=== PATIENT | male | born 1955 ===

== ENCOUNTER 2021-04-26 09:38 | Day surgery (SDC) | payer MEDICARE ==
[2021-04-26] MEDS ORDERED: LACTATED RINGERS 1,000 ML IV ONE ×2 (10:25→11:37)
[2021-04-26] MEDS ORDERED: MIDAZOLAM 2 MG/2 ML VIAL ONE (10:51)
[2021-04-26] MEDS ORDERED: fentaNYL 250 MCG/5 ML VIAL ONE (10:51)
[2021-04-26 12:16] VITALS: BP 117/68
== END 2021-04-26 09:39 | disposition home or self-care (01) ==
LOC: SDS 09:38
PROVIDERS: ATTEND Surgery
PROC: 0DBL8ZZ Excision of Transverse Colon, Via Natural or Artificial Opening Endoscopic (ICD-10-PCS; 2021-04-26)
PROC: 0DBL8ZZ Excision of Transverse Colon, Via Natural or Artificial Opening Endoscopic (ICD-10-PCS; 2021-04-26)
PROC: 0DBN8ZZ Excision of Sigmoid Colon, Via Natural or Artificial Opening Endoscopic (ICD-10-PCS; principal; 2021-04-26 10:45)
DX: Z12.11 Encounter for screening for malignant neoplasm of colon (principal); D12.5 Benign neoplasm of sigmoid colon; D12.3 Benign neoplasm of transverse colon; K64.8 Other hemorrhoids
CPT/HCPCS: 45380; 45385; J3010; J7120

== ENCOUNTER 2022-02-07 08:18 | Outpatient (CLI) | payer MEDICARE ==
[2022-02-07 15:03] LABS: ALBUMIN 4.2 g/dL (3.2-5.5); ALBUMIN/GLOBULIN RATIO 1.4 (1.0-2.2); ALKALINE PHOSPHATASE 86 IU/L (42-121); ALT ALANINE AMINOTRANSFERASE 25 IU/L (10-60); AST ASPARTATE AMINOTRANSFERASE 27 IU/L (10-42); BILIRUBIN,TOTAL 0.9 mg/dL (0.2-1.0); BUN - BLOOD UREA NITROGEN 12 mg/dL (6-20); CALCIUM 8.9 mg/dL (8.5-10.3); CARBON DIOXIDE - CO2 28 mmol/L (21-32); CHLORIDE 103 mmol/L (101-111); CHOL/HDL RATIO 4.8 (<5.0); CHOLESTEROL 189 mg/dL; CREATININE 0.8 mg/dL (0.6-1.2); GFR - MDRD 96 (>89); GLUCOSE 95 mg/dL (70-100); HDL CHOLESTEROL 39 mg/dL; LDL CHOLESTEROL,CALCULATED 112 mg/dL; LDL/HDL RATIO 2.9 (<3.6); SODIUM 137 mmol/L (135-145); TOTAL PROTEIN 7.2 g/dL (6.7-8.2); TRIGLYCERIDES 191 mg/dL; VLDL CHOLESTEROL 38 mg/dL
== END 2022-02-07 08:19 | disposition home or self-care (01) ==
LOC: LAB.S 08:18
PROVIDERS: ATTEND Registered Nurse
DX: E78.2 Mixed hyperlipidemia (principal)
CPT/HCPCS: 36415; 80053; 80061; 83721

== ENCOUNTER 2024-02-03 13:35 | Outpatient (CLI) | payer MEDICARE ==
--- NOTE | 2024-02-03 15:52 | XRAY Report ---
PROCEDURE: Chest 2V INDICATIONS: HIS OF RESPIRATORY DISEASE TECHNIQUE: 2 views of the chest were acquired. COMPARISON: None. FINDINGS: Surgical changes and devices: None. Lungs and pleura: No pleural effusions or pneumothorax. Lungs are clear. Mediastinum: Mediastinal contours appear normal. Heart size is normal. Bones and chest wall: No suspicious bony lesions. Overlying soft tissues appear unremarkable. IMPRESSION: No acute cardiopulmonary process. Reviewed by: Tejal Petersen MD on 02/03/2024 3:51 PM PDT Approved by: Tejal Petersen MD on 02/03/2024 3:51 PM PDT Station ID: [id number]
== END 2024-02-03 13:36 | disposition home or self-care (01) ==
LOC: DI.S 13:35
PROVIDERS: ATTEND Registered Nurse
DX: Z87.09 Personal history of other diseases of the respiratory system (principal)

== ENCOUNTER 2025-06-23 10:53 | Observation (INO) ==
--- NOTE | 2025-06-23 11:35 | XRAY Report ---
PROCEDURE: XR Chest 1V INDICATIONS: Chest pain TECHNIQUE: One view of the chest was acquired. COMPARISON: Chest radiograph 02/03/2024. FINDINGS: Surgical changes and devices: None. Lungs and pleura: No pleural effusions or pneumothorax. No consolidation. Mediastinum: Mediastinal contours appear normal. Heart size is normal. Bones and chest wall: No suspicious bony lesions. Overlying soft tissues appear unremarkable. IMPRESSION: No acute cardiopulmonary process. Reviewed by: Janett Crawford MD, PhD on 06/23/2025 11:32 AM PDT Approved by: Janett Crawford MD, PhD on 06/23/2025 11:32 AM PDT Station ID: [id number]
[2025-06-23 12:05] LABS: HCT - HEMATOCRIT 46.7 % (42.0-52.0); HGB - HEMOGLOBIN 16.2 g/dL (14.0-18.0); MEAN PLATELET VOLUME 10.4 fL (7.4-11.4); NRBC ABSOLUTE COUNT (AUTO) 0.00 x10^3/uL; NUCLEATED RED BLOOD CELLS AUTO 0.0 /100WBC; PLT - PLATELET COUNT 166 10^3/uL (130-450); RED CELL DISTRIBUTION WIDTH 12.5 % (12.0-15.0)
[2025-06-23 12:08] LABS: SLIDE REVIEW? Indicated
--- NOTE | 2025-06-23 12:11 | ED Physician Documentation ---
History of Present Illness Stated complaint Stated Complaint: BILAT CP Chief complaint Chief Complaint: Cardiac History obtained from History obtained from: Patient Additonal information Additional information: This is an otherwise healthy 69-year-old gentleman who presents for the evaluation of chest/abdominal pain. He has a history of hypertension, enlarged prostate, remote sarcoidosis in remission not known to affect his lungs. He developed high epigastric pain 3 days ago that has been constant ever since and starting yesterday he developed 2 more spots of pain to either side in the lower rib cage. Nothing makes it better or worse including deep breathing, eating, position changes. He did take an oxycodone that was helpful. He declines anything for pain on initial evaluation. Meds/Allgy Home Medications Ambulatory Orders Medication Instructions Recorded Confirmed sertraline 50 mg tablet 50 mg PO DAILY 04/26/2105/10 tamsulosin 0.4 mg capsule (Flomax) 0.4 mg PO DAILY 08/0606/23/25 amlodipine 5 mg tablet (Norvasc) 5 mg PO DAILY 4 06/23/25 bupropion HCl 300 mg 24 hr tablet, 300 mg PO DAILY 06/23/25 extended release niacinamide 500 mg tablet 500 mg PO DAILY 07/16/2405/10 propranolol 20 mg tablet 20 mg PO BID 07/16/24 Allergies Allergies Allergy/AdvReac Type Severity Reaction Status Date / Time No Known Drug Allergies Allergy Verified 06/23/25 11:17 PFSH Active Problems All Active Problems (Updated 06/23/25 @ 14:30 by Sonny Tijerina MD) Abnormal computed tomography of bladder (Acute) Acute cholecystitis (Acute) Chest pain (Acute) Medical History Medical History (Updated 06/23/25 @ 14:30 by Sonny Tijerina MD) Depression Claustrophobia Raynaud disease Sarcoidosis Surgical History Surgical History Hx of colonoscopy Social History Social History Do you feel safe in your home environment?: Yes History of physical, verbal, emotional, or financial abuse?: No ETOH Use: None Substance Use: cannabis (any form) Substance Use Details: uses occansional Exam Exam Vital Signs: Vital Signs x48h Temp Pulse BP Pulse Ox 06/23/25 13:04 62 104/63 96 06/23/25 11:17 36.8 C 60 98/67 96 06/23/25 11:02 36.6 C 60 109/74 97 Constitutional normal general appearance and no apparent distress Respiratory breath sounds equal bilaterally, normal respiratory effort and clear to auscultation bilaterally Cardiovascular normal heart rate noted, regular rhythm noted and no murmur Gastrointestinal abdomen soft to palpation and nontender to palpation Neurology GCS 15 Psychiatry oriented x3 Results Vitals Vitals: Vital Signs - 24 hr 06/23/25 11:02 06/23/25 11:17 06/23/25 13:04 Temperature 36.6 C 36.8 C Temperature Source Skin Temporal Artery Scan Pulse Rate 60 60 62 Blood Pressure 109/74 98/67 104/63 O2 Saturation 97 96 96 O2 Source Room air Room air Room air Pain Intensity 8 5 Oxygen O2 Source Room air EKG (time done) 1107: EKG releavant findings:: EKG personally interpreted by author of this note. Relevant findings are: Normal sinus rhythm with rate of 59, LAD with flat inferior T waves. No ST elevation or depression. Labs Labs: Laboratory Tests 06/23/25 12:00 WBC 17.9 H RBC 5.44 Hgb 16.2 Hct 46.7 MCV 85.8 MCH 29.8 MCHC 34.7 RDW 12.5 Plt Count 166 MPV 10.4 Neut # (Auto) 15.6 H Lymph # (Auto) 0.6 L Ogle # (Auto) 1.6 H Eos # (Auto) 0.0 Baso # (Auto) 0.0 Absolute Nucleated RBC 0.00 Nucleated RBC % 0.0 Manual Slide Review Indicated RBC Morph Micro Appear 1+ ANISOCYTOSIS Sodium 133 L Potassium 3.6 Chloride 99 L Carbon Dioxide 30 Anion Gap 4.0 L BUN 15 Creatinine 0.9 Estimated GFR (MDRD) 83 L Glucose 144 H Calcium 9.2 Total Bilirubin 1.4 H AST 32 ALT 56 Alkaline Phosphatase 96 Troponin I High Sens 5.8 Total Protein 7.4 Albumin 4.0 Globulin 3.4 Albumin/Globulin Ratio 1.2 Lipase 12 Rads (name of study) Single view chest x-ray is unremarkable: Relevant Findings:: Final report received and EMP independent interpretation of test (NAD) CT A/P: Relevant Findings:: Final report received and EMP independent interpretation of test (Likely cholecystitis) Interpretation: The gallbladder is distended, with a focally thickened wall and significant pericholecystic edema. No radiopaque gallstones are visualized. Findings are concerning for acute cholecystitis. Recommend right upper quadrant ultrasound for confirmation. No biliary dilation to suggest choledocholithiasis Trabeculated bladder wall with bladder stones and bladder diverticula. Irregular bladder wall thickening is present so underlying malignancy cannot be excluded. Consider cystoscopy. CT pulmonary angiogram was negative: Relevant Findings:: Final report received and EMP independent interpretation of test (NAD) PD Medical Decision Making ED course ED course: 69-year-old gentleman presents with pain that could be either intra-abdominal or intrathoracic. Differential diagnosis would include OH, ACS, PE, dissection, gallbladder pathology, gastritis. He declines anything for pain and evaluation. His EKG is nonischemic, his chest x-ray is normal. Will obtain CT imaging of the chest and abdomen. Workup demonstrates a CBC showing a white count of 17,900, I do not have priors available for comparison. CMP notable for mild hyponatremia, mild kidney disease of unclear acuity, modest hyperglycemia, and negative troponin. Given 3 days of ongoing symptoms I think he only needs a single troponin test for evaluation for ACS. Subsequent imaging demonstrated his gallbladder as the source of the pain and our on-call surgeon was called for consultation at 3:[address] Naqvi at 3:15pm, request admit to medicine for surgery C/S. Hospitalist called at [phone] and voicemail left. Discharge Plan Discharge Patient Disposition: ED Place in Observation Condition: Fair Clinical Impression: Chest pain, Acute cholecystitis, Abnormal computed tomography of bladder Prescriptions: No Action tamsulosin [Flomax] 0.4 MG capsule 0.4 mg PO DAILY sertraline 50 MG tablet 50 mg PO DAILY bupropion HCl 300 mg tablet extended release 24 hr 300 mg PO DAILY propranolol 20 mg tablet 20 mg PO BID amlodipine [Norvasc] 5 mg tablet 5 mg PO DAILY niacinamide 500 mg tablet 500 mg PO DAILY Print Language: Georgian Stand Alone Forms: PCP List
[2025-06-23 12:19] LABS: ALT ALANINE AMINOTRANSFERASE 56.0 IU/L (10-60); AST ASPARTATE AMINOTRANSFERASE 32.0 IU/L (10-42); BUN - BLOOD UREA NITROGEN 15.0 mg/dL (6-20); CARBON DIOXIDE - CO2 30.0 mmol/L (21-32); CREATININE 0.9 mg/dL (0.6-1.3); GFR - MDRD 83.0 (>89)
[2025-06-23 12:25] LABS: TROPONIN I HIGH SENSITIVITY 5.8 ng/L (2.3-19.7)
[2025-06-23 12:26] LABS: RBC MORPHOLOGY (MULTIPLE) 1+ ANISOCYTOSIS (NORMAL)
--- NOTE | 2025-06-23 14:24 | CT Report ---
PROCEDURE: CT Abdomen/Pelvis W INDICATIONS: upper abd pain, iv only CONTRAST: 100ml omni 300 TECHNIQUE: After the administration of intravenous contrast, a CT scan of the abdomen and pelvis was performed. Images were recorded and evaluated at appropriate window settings. Reformats: coronal and sagittal. For radiation dose reduction, the following was used: automated exposure control, adjustment of mA and/or kV according to patient size. COMPARISON: None. FINDINGS: Image quality: Diagnostic. Lower chest: Separately dictated. Liver: No solid mass. Gallbladder: The gallbladder is distended, with a focally thickened wall and significant pericholecystic edema. No radiopaque gallstones are visualized. Biliary tree: No intrahepatic or extrahepatic dilation, accounting for age. Spleen: No splenomegaly. Pancreas: No pancreatic ductal dilation. Adrenals: No adrenal nodule. Kidneys and ureters: No hydronephrosis. No renal cystic lesion which requires follow up. No solid mass. Stomach, bowel and peritoneum: No gastric or small bowel dilation. No abnormal wall thickening. No pathologic free fluid. Lymph nodes: No central or retroperitoneal adenopathy. Vessels: No infrarenal aortic aneurysm. Patent portal vein. PELVIS Reproductive organs: Unremarkable. Bladder: Trabeculated bladder wall with bladder stones and diverticula. No abnormal wall thickening present. Pelvic lymph nodes: No pelvic adenopathy by size criteria. Bones: No aggressive osseous abnormality. Other: Small left direct inguinal hernia containing fat. IMPRESSION: The gallbladder is distended, with a focally thickened wall and significant pericholecystic edema. No radiopaque gallstones are visualized. Findings are concerning for acute cholecystitis. Recommend right upper quadrant ultrasound for confirmation. No biliary dilation to suggest choledocholithiasis Trabeculated bladder wall with bladder stones and bladder diverticula. Irregular bladder wall thickening is present so underlying malignancy cannot be excluded. Consider cystoscopy. Reviewed by: Edwin Laureano MD on 06/23/2025 1:21 PM MATT Approved by: Edwin Laureano MD on 06/23/2025 1:21 PM [email or web address] Station ID: [id number]
--- NOTE | 2025-06-23 14:35 | CT Report ---
PROCEDURE: CT Angio Chest INDICATIONS: low chest pain, pe protocol CONTRAST: 100ml omni 300 TECHNIQUE: After the administration of intravenous contrast images of the chest were acquired. 3-dimensional coronal oblique maximum intensity projection (MIP) reformats, axial MIP, and coronal and sagittal MPR reformats were then performed through the chest. For radiation dose reduction, the following was used: automated exposure control, adjustment of mA and/or kV according to patient size. COMPARISON: None FINDINGS: Image quality: Excellent. Large vessels: No filling defects within the opacified pulmonary arteries, accounting for motion and contrast timing. No evidence of acute aortic syndrome or aortic aneurysm. Lungs and pleura: No consolidation. No pleural effusions. No pneumothorax. No suspicious pulmonary nodules which require follow up. Mediastinum: Heart size is enlarged. No pericardial effusion. No large vessel abnormality. No mediastinal adenopathy by size criteria. Chest wall and lower neck: Thyroid is unremarkable. No axillary or supraclavicular adenopathy by size. Bones: No aggressive osseous abnormality. Upper Abdomen: Separately dictated IMPRESSION: No pulmonary embolus. No acute cardiopulmonary pathology. Reviewed by: Edwin Laureano MD on 06/23/2025 1:32 PM MATT Approved by: Edwin Laureano MD on 06/23/2025 1:32 PM AKBLOSSOM Station ID: [id number]
[2025-06-23] MEDS: HYDROmorphone 1 MG/ML CARPUJECT IVP STA (15:23)
--- NOTE | 2025-06-23 15:40 | Ultrasound Report ---
PROCEDURE: US Abdomen Limited INDICATIONS: Upper abdominal pain w abnormal gallbladder on CT TECHNIQUE: Real-time focused scanning was performed of the abdomen, with image documentation. COMPARISONS: Same day CT abdomen/pelvis 06/23/2025 FINDINGS: Liver: Liver is normal in size and homogeneous in echotexture. Gallbladder: Cholelithiasis and sludge with gallbladder wall thickening and pericholecystic fluid. Biliary ducts: Intrahepatic bile ducts are non-dilated. Extrahepatic bile duct caliber measures 5.6 mm. Normal is 6-7 mm or less in diameter, or 10 mm or less post-cholecystectomy. Pancreas: Not well visualized due to overlying bowel gas. Right kidney: Normal in size and echotexture. Right kidney measures 10.7 cm long. No hydronephrosis or nephrolithiasis. No solid masses. No complex renal cystic lesions which require follow-up. Simple right renal cyst measuring up to 1.8 cm IVC: Intrahepatic inferior vena cava is patent. Miscellaneous: No free abdominal fluid. IMPRESSION: Cholelithiasis with wall thickening and pericholecystic fluid concerning for acute cholecystitis. Agree with preliminary findings given to the ordering provider by the toe former following completion of the study. Reviewed by: Janett Crawford MD, PhD on 06/23/2025 3:37 PM PDT Approved by: Janett Crawford MD, PhD on 06/23/2025 3:37 PM PDT Station ID: [id number]
[2025-06-23] MEDS: AMPICILLIN/SULBACTAM 3 GM in SODIUM CHLORIDE 0.9% MINIBAG 100 ML IV STA (15:41)
--- NOTE | 2025-06-23 16:20 | HISTORY & PHYSICAL EXAMINATION ---
Chief Complaint Chief Complaint Chief Complaint: Abdominal pain History of Present Illness Admitted From Admitted From:: Home History Obtained From Records Reviewed: EMR History obtained from: Patient Exam Limitations: None History of Present Illness HPI Comment/Other: Patient is a 69 year old male with a history of depression, BPH who presents with abdominal pain. He states it started about three days ago, and has progressively worsened. He states it started in the epigastric region, and radiated outward. He describes it as three half inch semi buckland spots of pain. Initially, he thought that the pain was his GERD. However, it continued to progress. He tried Tums, without relief. He then tried Tylenol and naproxen without any relief. He took an oxycodone, which was leftover from his 's recent neck surgery, which eventually provided relief. He denies any nausea, vomiting, fevers, chills. He has had a right inguinal hernia surgery before, but no other abdominal surgeries. This abdominal pain is new for him, and he has not been told that he has gallstones in the past. In the ER, he was vitally stableblood pressure was 109/74, heart rate was 60, he was saturating 97% on room air, and he was afebrile. Lab work was reviewedshowed a leukocytosis of 17.9, sodium of 133, glucose of 144, and elevated bilirubin of 1.4. An abdomen/pelvis CT showed distended gallbladder with focally thickened wall and significant Segundo cholecystic edema. Abdominal ultrasound confirmed cholelithiasis with wall thickening and Segundo cholecystic fluid concerning for acute cholecystitis. A CTA was also done which showed no pulmonary embolus and no other acute cardiopulmonary pathologies. General surgery was consulted, and they will likely take the patient for a laparoscopic cholecystectomy in the a.m. He was started on IV Zosyn, and admitted for medical management. Past medical history includes depression, sarcoidosis of which she has not had a flare since he was 36, BPH, hypertension, ANGELES, hyperlipidemia. Medications include bupropion, sertraline, propranolol, tamsulosin. He has no known drug allergies. Past surgical history includes right inguinal hernia surgery repair, as well as a left hand plate and babs orthopedic repair. He denies any alcohol, tobacco, recreational drug use. He lives with his . He is very active. He ambulates independently. 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 We did discuss CODE STATUS. He is a full code and does not want any aggressive measures. They do have a POLST at home. Diet: CLD, NPO at midnight Dispo: Home on discharge Code: Full Code, discussed with and patient DVT: Lovenox Meds/Allgy Home Medications Ambulatory Orders Medication Instructions Recorded Confirmed tamsulosin 0.4 mg capsule (Flomax) 0.4 mg PO BID 04/2606/23/25 amlodipine 5 mg tablet (Norvasc) 5 mg PO DAILY 4 06/23/25 bupropion HCl 300 mg 24 hr tablet, 300 mg PO DAILY 06/23/25 extended release niacinamide 500 mg tablet 500 mg PO BID 07/16/2406/23 propranolol 20 mg tablet 20 mg PO BID 07/16/24 sertraline 100 mg tablet 50 mg PO DAILY 06/23/2505/10 Allergies Allergies Allergy/AdvReac Type Severity Reaction Status Date / Time No Known Drug Allergies Allergy Verified 06/23/25 11:17 PFSH Active Problems All Active Problems Leukocytosis (Acute) Abnormal computed tomography of bladder (Acute) Acute cholecystitis (Acute) Chest pain (Acute) Medical History Medical History Hypertension Depression Claustrophobia Raynaud disease Sarcoidosis Surgical History Surgical History History of inguinal hernia repair Hx of colonoscopy Family History Family History Other Cancer High blood pressure Social History Social History Smoking Status: Unknown if ever smoked Do you dip or chew tobacco?: No Do you vape?: No Level: Independent Do you feel safe in your home environment?: Yes History of physical, verbal, emotional, or financial abuse?: No ETOH Use: None Substance Use: cannabis (any form) Substance Use Details: uses occansional POLST Patient has POLST: No POLST on file?: No POLST CPR Status: Attempt Resuscitation (CPR) Level of Medical Intervention: Full Treatment Review of Systems Constitutional Reports: Fatigue and Weakness; Denies: Fever, Chills, Malaise or Poor appetite Eyes Denies: Pain, Irritation, Blurry vision, Vision loss, Diplopia or Eye discomfort Ears, nose, mouth, and throat Denies: Ear pain, Hearing loss, Tinnitus, Nose bleeds, Nasal discharge, Mouth lesions, Bleeding gums or Neck pain Cardiovascular Denies: Irregular heart rate, chest pain, palpitations, edema, Syncope or shortness of breath with exertion Respiratory Denies: Shortness of breath, Cough, Sputum production or Wheezing Gastrointestinal Reports: Abdominal pain and Poor appetite; Denies: Abdominal distention, Nausea, Vomiting, Heartburn, Diarrhea or Constipation Genitourinary Denies: Painful urination, Urinary frequency or Urinary urgency Musculoskeletal Denies: Back pain, Neck pain, Extremity pain, Extremity swelling or Joint pain Integumentary/Breast Denies: Rash, Itching, Dryness, Redness or Skin pain Neurological Reports: General weakness; Denies: Headache, Weakness in extremities, Numbness in extremities, Abnormal gait or Dizziness Psychiatric Reports: Depression; Denies: Anxiety, Mood swings or Panic attacks Endocrine Reports: Fatigue; Denies: Excessive urination or Excessive thirst Hematologic/Lymphatic Denies: Anemia, Easy bruising or Easy bleeding Allergic/Immunologic Denies: Hives, Tongue swelling, Facial swelling or Wheezing Prior Level of Functionality: Independent of ADLs. Exam Exam Vital Signs: Vital Signs x48h Temp Pulse Pulse Resp BP BP Pulse Ox 06/23/25 16:40 98.6 F 61 18 140/76 H 94 06/23/25 15:00 57 L 16 127/72 98 06/23/25 14:00 57 L 16 135/73 H 97 06/23/25 13:04 62 104/63 96 06/23/25 11:17 98.2 F 60 98/67 96 06/23/25 11:02 97.9 F 60 109/74 97 Constitutional normal general appearance, no apparent distress, average body habitus and no limitations HENMT normocephalic, head/scalp atraumatic and hearing grossly normal bilaterally Eyes PERRL, EOMs intact bilaterally and conjunctivae normal Neck/C-Spine visual inspection normal, trachea midline and cervical spine nontender Chest inspection of chest normal Respiratory breath sounds equal bilaterally, normal respiratory effort, clear to auscultation bilaterally, no wheezes, no rales and no retractions Cardiovascular normal heart rate noted, regular rhythm noted, no gallop, no rub and no murmur Gastrointestinal abdomen normal to inspection, abdomen soft to palpation, nontender to palpation and normoactive bowel sounds No tenderness to palpation in epigastric or RUQ region. No rebound tenderness, guarding, rigidity. Genitourinary no CVA tenderness and bladder normal to palpation Back/Pelvis spine normal to inspection Extremities normal to inspection Neurology no movement abnormality noted Psychiatry mental status grossly normal, oriented x3, thought process normal, cooperative and affect normal Skin skin color normal, no rash, no lesions and no wounds Conclusion/Plan Problem List (1) Acute cholecystitis: Plan: Patient presents with abdominal pain, leukocytosis, elevated bilirubin. CT abdomen/pelvis shows distended gallbladder with thickened wall and pericholecystic edema. This was followed up by an abdominal ultrasound which shows wall thickening and pericholecystic fluid. General Surgery consultedplan for laparoscopic cholecystectomy tomorrow AM. Continue Zosyn at this time. Continue IV fluids. Clear liquid diet at this time, followed by n.p.o. at midnight. Pain control with Tylenol for mild pain, oxycodone or Toradol for moderate pain. Will supplement with IV opioids if needed for severe pain. RCRI of 1, 1.1% major cardiac event. No chest pain, shorntess of breath. Functional METS greater than 4, patient normally very active. Patient is at acceptable risk for surgery. (2) Leukocytosis: Plan: Attributed to above. Continue to trend daily. Qualifiers: Leukocytosis type: unspecified Qualified Code(s): D72.829 - Elevated white blood cell count, unspecified (3) Hypertension: Plan: Borderline blood pressures at this time. Continue propranolol to avoid rebound tachycardia. Qualifiers: Hypertension type: unspecified Qualified Code(s): I10 - Essential (primary) hypertension (4) Sarcoidosis: Plan: Patient without an active flare since his mid 30s. Currently on room air. CTA with no active cardiopulmonary process. (5) Raynaud disease: Plan: Will continue amlodipine. Qualifiers: Raynaud?s-associated gangrene presence: without gangrene Qualified Code(s): I73.00 - Raynaud's syndrome without gangrene Lab Results Lab results reviewed: Yes 06/23/25 12:00 06/23/25 12:00 Diagnostic Imaging Results Diagnostic Imaging Results: positive Final report reviewed EKG Results EKG Interpreted Independently: Yes Core Measures Anticipated LOS I expect patient to be DC'd or transferred within 96 hours.: Yes Issues Hospital Issues and Management Plan: None anticipated. DVT/VTE - Prophylaxis VTE/DVT Device ordered at admit?: No VTE/DVT Prophylaxis med ordered at admit?: Yes Stroke - Rehab Assessment Rehab services assessment to be ordered?: No Not Ordered - Medical Reason: Not indicated AMI - Statin at Admit Aspirin Prescribed on Admit: No Not Ordered - Medical Reason: Not indicated
--- NOTE | 2025-06-23 16:42 | CONSULTATION NOTE ---
Referring Provider Name of Referring Provider:: Dr. Tijerina Consult Date: 06/23/25 Chief Complaint Chief Complaint Chief Complaint: Abdominal pain History of Present Illness Admitted From Admitted From:: ED History Obtained From Records Reviewed: Yes History obtained from: Patient Exam Limitations: None History of Present Illness HPI Comment/Other: Cody is a 69 year old man who was well until Saturday when he developed the sudden onset of midepigastric pain. It was sharp and non-radiating and while initially located below the xiphoid, eventually migrated to the right and left upper quadrants. He denies nausea, bloating or belching. He has been able to eat without difficulty all week but nocturnal discomfort Saturday and Saturday night kept him from sleeping and so he came to the ED for evaluation. He denies previous episodes of similar discomfort. The use of Peptobismol and Tums did not relieve his symptoms. He denies fever, chills or night sweats. In the ED his pain, which was 8/10 was now 1/10 with a single dose of IV Dilaudid. CT and US of the abdomen identified a distended gallbladder with intra-luminal sludge, wall thickening, and pericholecystic fluid. There was no extrahepatic bile duct dilation. His LFTs were normal except for a T. Bili of 1.4 and his WBC was elevated at 17K. Cody was admitted to the medicine service and I was asked to assist in his evaluation and management. [place] the [place] with his who he says knows his condition and will visit him this evening. 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 [facility] Active Problems All Active Problems Leukocytosis (Acute) Abnormal computed tomography of bladder (Acute) Acute cholecystitis (Acute) Chest pain (Acute) Medical History Medical History Hypertension Depression Claustrophobia Raynaud disease Sarcoidosis Surgical History Surgical History (Updated 06/23/25 @ 16:44 by Ayo Naqvi MD) History of inguinal hernia repair Hx of colonoscopy Family History Family History (Updated 06/23/25 @ 16:45 by Ayo Naqvi MD) Other Cancer High blood pressure Social History Social History (Reviewed 07/20/24 @ 09:11 by HESHAM Barrios Smoking Status: Unknown if ever smoked Do you feel safe in your home environment?: Yes History of physical, verbal, emotional, or financial abuse?: No ETOH Use: None Substance Use: cannabis (any form) Substance Use Details: uses occansional POLST Patient has POLST: No Meds/Allgy Home Medications Ambulatory Orders Medication Instructions Recorded Confirmed tamsulosin 0.4 mg capsule (Flomax) 0.4 mg PO DAILY 08/0606/23/25 amlodipine 5 mg tablet (Norvasc) 5 mg PO DAILY 4 06/23/25 bupropion HCl 300 mg 24 hr tablet, 300 mg PO DAILY 06/23/25 extended release niacinamide 500 mg tablet 500 mg PO DAILY 07/16/2405/10 propranolol 20 mg tablet 20 mg PO BID 07/16/24 sertraline 100 mg tablet mg 06/23/25 Allergies Allergies Allergy/AdvReac Type Severity Reaction Status Date / Time No Known Drug Allergies Allergy Verified 06/23/25 11:17 Results Lab Results 06/23/25 12:00 06/23/25 12:00 Other Lab Results: Lab Results x24hrs 06/23/25 Range/Units 12:00 WBC 17.9 H (4.8-10.8) x10^3/uL RBC 5.44 (4.70-6.10) 10^6/uL Hgb 16.2 (14.0-18.0) g/dL Hct 46.7 (42.0-52.0) % MCV 85.8 (80.0-94.0) fL MCH 29.8 (27.0-31.0) pg MCHC 34.7 (32.0-36.0) g/dL RDW 12.5 (12.0-15.0) % Plt Count 166 (130-450) 10^3/uL MPV 10.4 (7.4-11.4) fL Neut # (Auto) 15.6 H (1.5-6.6) 10^3/uL Lymph # (Auto) 0.6 L (1.5-3.5) 10^3/uL [place] # (Auto) 1.6 H (0.0-1.0) 10^3/uL Eos # (Auto) 0.0 (0.0-0.7) 10^3/uL Baso # (Auto) 0.0 (0.0-0.1) 10^3/uL Absolute Nucleated RBC 0.00 x10^3/uL Nucleated RBC % 0.0 /100WBC Manual Slide Review Indicated RBC Morph Micro Appear 1+ ANISOCYTOSIS (NORMAL) Sodium 133 L (135-145) mmol/L Potassium 3.6 (3.5-4.5) mmol/L Chloride 99 L (101-111) mmol/L Carbon Dioxide 30 (21-32) mmol/L Anion Gap 4.0 L (6-13) BUN 15 (6-20) mg/dL Creatinine 0.9 (0.6-1.3) mg/dL Estimated GFR (MDRD) 83 L (>89) Glucose 144 H (74-104) mg/dL Calcium 9.2 (8.5-10.3) mg/dL Total Bilirubin 1.4 H (0.2-1.0) mg/dL AST 32 (10-42) IU/L ALT 56 (10-60) IU/L Alkaline Phosphatase 96 (42-121) IU/L Troponin I High Sens 5.8 (2.3-19.7) ng/L Total Protein 7.4 (6.4-8.9) g/dL Albumin 4.0 (3.2-5.5) g/dL Globulin 3.4 (2.1-4.2) g/dL Albumin/Globulin Ratio 1.2 (1.0-2.2) Lipase 12 (11-82) U/L Diagnostic Imaging Results Diagnostic Imaging Results Comments: CT Abd/Pelvis and US RUQ reviewed Both consistent with acute cholecystitis Review of Systems Midepigastric abdominal pain, otherwise 10 point ROS noncontributory Exam Exam Vital Signs: Vital Signs x48h Temp Pulse Resp BP Pulse Ox 06/23/25 15:00 57 L 16 127/72 98 06/23/25 14:00 57 L 16 135/73 H 97 06/23/25 13:04 62 104/63 96 06/23/25 11:17 36.8 C 60 98/67 96 06/23/25 11:02 36.6 C 60 109/74 97 Constitutional normal general appearance, no apparent distress and average body habitus HENMT normocephalic, head/scalp atraumatic, hearing grossly normal bilaterally and oral mucous membranes normal Eyes PERRL, EOMs intact bilaterally, conjunctivae normal and no scleral icterus Neck/C-Spine visual inspection normal and trachea midline Lymph no lymphadenopathy noted Chest inspection of chest normal Respiratory breath sounds equal bilaterally, normal respiratory effort and clear to auscultation bilaterally Cardiovascular normal heart rate noted, regular rhythm noted and no murmur Gastrointestinal abdomen normal to inspection, abdomen soft to palpation, nontender to palpation, nontender to percussion, nondistended, normoactive bowel sounds, no hepatosplenomegaly and no masses Negative Olea's sign Extremities normal to inspection and full ROM Neurology no focal motor deficit noted and speech normal Psychiatry mental status grossly normal, oriented x3, thought process normal, cooperative and affect normal Skin skin color normal and no jaundice Conclusion/Plan Problem List (1) Acute cholecystitis: Plan 1) Clear liquids tonight; NPO after midnight 2) IV antibiotics (Unasyn) 3) IV Ketorolac 4) VTEP 5) Labs in am 6) Schedule laparoscopic cholecystectomy, possible open cholecystectomy tomorrow Consent: Cody has been counseled for the procedure, it's indications, risks, benefits and expected outcome as well as alternative therapies. We specifically discussed risks associated with anesthesia, bleeding, infection, injury to surrounding structures which may require additional surgery, and the possible need for conversion to an open procedure. We also discussed the possible need for a blood transfusion with its risks and benefits. Cody understands, agrees, and consents to the proposed operative strategy and requests that we proceed with the procedure as outlined in our discussion. Ayo Naqvi MD, [facility] General Surgery Service Lab Results 06/23/25 12:00 06/23/25 12:00
[2025-06-23] MEDS ORDERED: ONDANSETRON ODT 4 MG TABLET TL PRN (16:43)
[2025-06-23] MEDS ORDERED: SODIUM CHLORIDE FLUSH 0.9% 10 ML SYRINGE IVP PRN (16:43)
[2025-06-23] MEDS ORDERED: ONDANSETRON 4 MG/2 ML VIAL IVP PRN (16:43)
[2025-06-23] MEDS ORDERED: HYDROcod/ACETAM 5/325 MG TABLET PO PRN (16:43)
[2025-06-23] MEDS ORDERED: ACETAMINOPHEN 325 MG TABLET PO PRN (16:43)
[2025-06-23] MEDS: LACTATED RINGERS 1,000 ML IV SCH (16:59)
[2025-06-23] MEDS: SODIUM CHLORIDE FLUSH 0.9% 10 ML SYRINGE IVP SCH (16:59)
--- NOTE | 2025-06-23 17:04 | PHARMACY PROGRESS NOTE ---
Best Possible Medication History Admit Date and Time: 06/23/25 1527 Home Medications Medication Instructions Recorded Confirmed Type tamsulosin 0.4 mg capsule (Flomax) 0.4 mg PO BID 04/2606/23/25 History amlodipine 5 mg tablet (Norvasc) 5 mg PO DAILY 06/23/25 History bupropion HCl 300 mg 24 hr tablet, 300 mg PO DAILY 06/23/25 History extended release niacinamide 500 mg tablet 500 mg PO BID 07/16/2406/23 History propranolol 20 mg tablet 20 mg PO BID 07/16/24 History sertraline 100 mg tablet 50 mg PO DAILY 06/23/2505/10 History Processed by: Pharmacy (Medication reconciliation completed by Certified Professional ControllerFrance) Medications reviewed in ED?: No Medication History completed: Yes Patient Interview: Completed Secondary Source(s): Insurance records [facility] Statement: As the person ultimately responsible for medication therapy, providers are able to order a medication from an existing home medication list in [facility] via the "Reconcile Routine" prior to Confirmation of that medication by faculty support coordinator. Such practice is discouraged except when the physician, in their clinical judgment, deems that a medical need exists for a medication without regard to previous use.
[2025-06-23] MEDS ORDERED: oxyCODONE 5 MG TABLET PO PRN (17:52)
[2025-06-23] MEDS: KETOROLAC 15 MG/ML VIAL IVP PRN (18:17)
[2025-06-23] MEDS: PIPERACILLIN/TAZOBACTAM 3.375 GM in SODIUM CHLORIDE 0.9% MINIBAG 100 ML IV SCH (19:50)
[2025-06-23] MEDS: PROPRANOLOL 10 MG TABLET PO SCH (22:36)
[2025-06-24 06:13] LABS: HCT - HEMATOCRIT 39.2 % (42.0-52.0); HGB - HEMOGLOBIN 14.2 g/dL (14.0-18.0); MEAN PLATELET VOLUME 10.7 fL (7.4-11.4); PLT - PLATELET COUNT 129.0 10^3/uL (130-450); RED CELL DISTRIBUTION WIDTH 12.6 % (12.0-15.0)
[2025-06-24 06:34] LABS: BUN - BLOOD UREA NITROGEN 13.0 mg/dL (6-20); CARBON DIOXIDE - CO2 27.0 mmol/L (21-32); CREATININE 0.7 mg/dL (0.6-1.3); GFR - MDRD 111.0 (>89)
--- NOTE | 2025-06-24 07:41 | PROVIDER PROGRESS NOTE ---
Progress Note Progress Note Progress Note: General Surgery Progress Note S: Slept well; Complains of no abdominal pain O: VSS, afeb; Abdomen is soft and without tenderness or a palpable mass WBC 16.8; H&H 39.2/14.2; Na 133; K 3.3; BUN 13; Cr 0.7; Glu 121 A: Acute cholecystitis by clinical presentation and image verification. Clinically stable. P: Patient is ready for surgery later this morning. All questions answered. Ayo Naqvi MD, FACS General Surgery Service
[2025-06-24] MEDS: POTASSIUM CHLOR 10 MEQ/100 ML 10 MEQ/100 ML BAG IV SCH (08:57)
[2025-06-24] MEDS: SERTRALINE 50 MG TABLET PO SCH (09:31)
[2025-06-24] MEDS: TAMSULOSIN 0.4 MG CAPSULE PO SCH (09:32)
[2025-06-24 09:57] LABS: ALT ALANINE AMINOTRANSFERASE 51.0 IU/L (10-60); AST ASPARTATE AMINOTRANSFERASE 39.0 IU/L (10-42); BUN - BLOOD UREA NITROGEN 13.0 mg/dL (6-20); CARBON DIOXIDE - CO2 26.0 mmol/L (21-32); CREATININE 0.7 mg/dL (0.6-1.3); GFR - MDRD 111.0 (>89)
[2025-06-24] MEDS ORDERED: LIDOCAINE 1%-EPI 1:100000 20 ML MDV ONE ×2 (10:40→11:23)
[2025-06-24] MEDS ORDERED: BUPIVACAINE 0.5% PF 10 ML VIAL ONE ×2 (10:40→11:23)
--- NOTE | 2025-06-24 11:04 | Discharge Summary ---
"Discharge Summary Admit Date: 06/23/25 Discharge Date: 06/25/25 Discharging Provider: Dr. Van Xie Primary Care Provider: Lcuy Jones Discharge Facility Name: Home, self care DIAGNOSES Admission Diagnoses: Acute cholecystitis Patient presents with abdominal pain, leukocytosis, elevated bilirubin. CT abdomen/pelvis shows distended gallbladder with thickened wall and pericholecystic edema. This was followed up by an abdominal ultrasound which shows wall thickening and pericholecystic fluid. laparoscopic cholecystectomy completed today. Drain placed. Received Zosyn as well. Will need follow-up with general surgery in the outpatient within 1 to 2 weeks. Leukocytosisimproving. Hypertensioncontinue propranolol, will repeat on discharge. Sarcoidosispatient with no active flare since his mid 30s, currently on room air. Raynaud's diseaseamlodipine continued. HPI History of Present Illness: Patient is a 69 year old male with a history of depression, BPH who presents with abdominal pain. He states it started about three days ago, and has progressively worsened. He states it started in the epigastric region, and radiated outward. He describes it as three half inch semi [place] spots of pain. Initially, he thought that the pain was his GERD. However, it continued to progress. He tried Tums, without relief. He then tried Tylenol and naproxen without any relief. He took an oxycodone, which was leftover from his 's recent neck surgery, which eventually provided relief. He denies any nausea, vomiting, fevers, chills. He has had a right inguinal hernia surgery before, but no other abdominal surgeries. This abdominal pain is new for him, and he has not been told that he has gallstones in the past. In the ER, he was vitally stableblood pressure was 109/74, heart rate was 60, he was saturating 97% on room air, and he was afebrile. Lab work was reviewedshowed a leukocytosis of 17.9, sodium of 133, glucose of 144, and elevated bilirubin of 1.4. An abdomen/pelvis CT showed distended gallbladder with focally thickened wall and significant Segundo cholecystic edema. Abdominal ultrasound confirmed cholelithiasis with wall thickening and Segundo cholecystic fluid concerning for acute cholecystitis. A CTA was also done which showed no pulmonary embolus and no other acute cardiopulmonary pathologies. General surgery was consulted, and they will likely take the patient for a laparoscopic cholecystectomy in the a.m. He was started on IV Zosyn, and admitted for medical management. Past medical history includes depression, sarcoidosis of which she has not had a flare since he was 36, BPH, hypertension, ANGELES, hyperlipidemia. Medications include bupropion, sertraline, propranolol, tamsulosin. He has no known drug allergies. Past surgical history includes right inguinal hernia surgery repair, as well as a left hand plate and babs orthopedic repair. He denies any alcohol, tobacco, recreational drug use. He lives with his . He is very active. He ambulates independently. 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 We did discuss CODE STATUS. He is a full code and does not want any aggressive measures. They do have a POLST at home. Diet: CLD, NPO at midnight Dispo: Home on discharge Code: Full Code, discussed with and patient DVT: Lovenox CONSULTS | PROCEDURES Consultations: General surgery Procedures: Abdomen ultrasound, CTA, abdomen/pelvis CT, chest x-ray HOSPITAL COURSE Hospital Course: Patient is a 69-year-old male with a history of sarcoidosis without an active flare for over 40 years, Raynaud's disease, BPH who presents due to abdominal pain. He states that has been ongoing for about 3 days. Abdomen/pelvis CT was done on 06/23, followed by abdominal ultrasound which showed acute cholecystitis. He did elevated white count at 17.9. He was started on IV Zosyn, and was taken to the operating room for laparoscopic cholecystectomy the next morning. Due to gangrenous nature, drain was placed. The next morning, patient was doing well. Tolerating diet, and pain was minimal. He will be discharged home with the drain. He was advised to call to make a nursing appointment at the surgery clinic when drain output is less than 30 cc over 24 hours. He was advised to follow-up closely with his primary care provider as well. He was discharged home in stable condition with close follow-up. ALLERGIES Allergies Allergy/AdvReac Type Severity Reaction Status Date / Time No Known Drug Allergies Allergy Verified 06/23/25 11:17 MEDICATIONS Ambulatory Orders Medication Instructions Recorded Confirmed tamsulosin 0.4 mg capsule (Flomax) 0.4 mg PO BID 04/2606/23/25 amlodipine 5 mg tablet (Norvasc) 5 mg PO DAILY 4 06/23/25 bupropion HCl 300 mg 24 hr tablet, 300 mg PO DAILY 06/23/25 extended release niacinamide 500 mg tablet 500 mg PO BID 07/16/2406/23 propranolol 20 mg tablet 20 mg PO BID 07/16/24 sertraline 100 mg tablet 50 mg PO DAILY 06/23/2505/10 PHYSICAL EXAM AT DISCHARGE Vital Signs: Vital Signs x48h Temp Pulse Resp BP Pulse Ox 06/25/25 09:45 98.1 F 58 L 18 119/69 92 06/25/25 07:43 98.2 F 80 18 134/74 H 93 06/25/25 04:40 97.9 F 59 L 17 150/81 H 93 General Appearance: positive No acute distress and Alert; negative Anxious Eyes Bilateral: positive Normal inspection, PERRL and EOMI ENT: positive ENT inspection nml, Pharynx nml and No signs of dehydration Neck: positive Nml inspection, Thyroid nml and No JVD Respiratory: positive Chest non-tender, No respiratory distress and Breath sounds nml; negative Wheezes, Rales or Rhonchi Cardiovascular: positive Regular rate & rhythm, No murmur and No gallop; negative Tachycardia or Systolic murmur Abdomen: positive No organomegaly and No distention; non tender to palpation; surgical scars with minimal serosanguinous drainage noted; SOLO drain with ~20cc of serosanguinous drainage Back: positive Nml inspection; negative CVA tenderness (R) or CVA tenderness (L) Skin: positive Color nml, No rash, Warm and Dry Extremities: positive Non-tender, Full ROM, Nml appearance and No pedal edema Neurologic/Psychiatric: positive Oriented x3, Motor nml and Mood/affect nml LABS 06/25/25 05:07 06/25/25 05:07 FOLLOW UP Follow Up: Follow up PCP. Follow up general surgery. TIME SPENT Time Spent in Discharge (Minutes): 35 Discharge Plan Discharge Patient Disposition: Home, Self Care Condition: Fair Prescriptions: Continued tamsulosin [Flomax] 0.4 MG capsule 0.4 mg PO BID bupropion HCl 300 mg tablet extended release 24 hr 300 mg PO DAILY propranolol 20 mg tablet 20 mg PO BID amlodipine [Norvasc] 5 mg tablet 5 mg PO DAILY niacinamide 500 mg tablet 500 mg PO BID sertraline 100 mg tablet 50 mg PO DAILY Activity Restrictions: Activity as Tolerated Diet: Soft Health Concerns: Activity: You may walk and do light activities as soon as you feel able.Most people return to normal daily activities within a few days.Avoid heavy lifting, strenuous exercise, or vigorous sports for at least one week.If your job is physically demanding, wait about a week before returning.For desk or light work, you may return in 23 days, as tolerated. Diet: Start with clear liquids and then move to a soft diet the morning after surgery.For the next two weeks, avoid meat, bread, and carbonated drinks, as these can upset your stomach.Gradually reintroduce other foods as you feel comfortable. Pain Management: Some pain or discomfort is normal after surgery.Take acetaminophen (Tylenol) and/or NSAIDs as directed. Wound Care: Your incisions are covered with waterproof dressings.Keep them clean and dry.You may shower, but avoid soaking in a bath until the wounds are fully healed.Watch for signs of infection: redness, swelling, pus, or increasing pain at the incision sites. Follow-Up: A follow-up appointment is usually scheduled 12 weeks after surgery.Contact your healthcare team sooner if you have fever, severe pain, persistent vomiting, yellowing of your skin or eyes, or any concerns about your wounds. As for your drain, once there is less than 30cc of fluid in 24 hours, please call the surgery clinic to make a nursing appointment to have the drain removed. Recovery Expectations: Most people feel tired for a few days.Sleep quality may be affected at first but should improve quickly.Bowel habits may change temporarily.Full recovery typically takes 23 weeks. When to Seek Help: Call your doctor or go to the emergency room if you experience: Severe or worsening pain not controlled by medication Persistent vomiting or inability to keep fluids down Signs of infection at the incision sites Yellowing of your skin or eyes Shortness of breath or chest pain Other Tips: Resume driving only when you are no longer taking prescription pain medication and feel comfortable moving. If you have any questions or concerns, do not hesitate to contact your healthcare team. Print Language: Azeri Patient Instructions: Surg Dc Stand Alone Forms: PCP List Follow-up Care: Chelo Huynh MD [Provider Admit Priv/Credential, Surgery, General] - 2 Weeks Vitals documented within 30 minutes of discharge?: Yes (See DC VSs)"
--- NOTE | 2025-06-24 11:12 | ANESTHESIA PROCEDURE NOTE ---
Pre-Anesthesia VS, & Labs Diagnosis Surgical Diagnosis:: Acute Cholecystitis Procedure Procedure: Laparoscopic Cholecystectomy Vitals Vital Signs: Temp Pulse Resp BP Pulse Ox 37.2 C 60 16 137/73 H 94 06/24/25 08:11 06/24/25 08:11 06/24/25 08:11 06/24/25 08:11 06/24/25 08:11 NPO NPO: >8 hours Lab Results Current Lab Results: Laboratory Tests 06/24/25 05:50: Calcium 8.5, Magnesium 2.0, Total Bilirubin 1.2 H, AST 39, ALT 51, Alkaline Phosphatase 105, Total Protein 6.0 L, Albumin 3.3, Globulin 2.7, Albumin/Globulin Ratio 1.2 06/24/25 05:50: Glucose 122 H, Calcium 8.4 L 06/24/25 05:50: Estimated GFR (MDRD) 111, Glucose 121 H 06/24/25 05:50: Creatinine 0.7, Estimated GFR (MDRD) 111 06/24/25 05:50: BUN 13, Creatinine 0.7 06/24/25 05:50: Anion Gap 7.0, BUN 13 06/24/25 05:50: Carbon Dioxide 26, Anion Gap 6.0 06/24/25 05:50: Chloride 100 L, Carbon Dioxide 27 06/24/25 05:50: Potassium 3.4 L, Chloride 100 L 06/24/25 05:50: Sodium 133 L, Potassium 3.3 L 06/24/25 05:50: WBC 16.8 H, RBC 4.58 L, Hgb 14.2, Hct 39.2 L, MCV 85.6, MCH 31.0, MCHC 36.2 H, RDW 12.6, Plt Count 129 L, MPV 10.7, Sodium 133 L 06/23/25 12:00: WBC 17.9 H, RBC 5.44, Hgb 16.2, Hct 46.7, MCV 85.8, MCH 29.8, MCHC 34.7, RDW 12.5, Plt Count 166, MPV 10.4, Neut # (Auto) 15.6 H, Lymph # (Auto) 0.6 L, [place] # (Auto) 1.6 H, Eos # (Auto) 0.0, Baso # (Auto) 0.0, Absolute Nucleated RBC 0.00, Nucleated RBC % 0.0, Manual Slide Review Indicated, RBC Morph Micro Appear 1+ ANISOCYTOSIS, Sodium 133 L, Potassium 3.6, Chloride 99 L, Carbon Dioxide 30, Anion Gap 4.0 L, BUN 15, Creatinine 0.9, Estimated GFR (MDRD) 83 L, Glucose 144 H, Calcium 9.2, Total Bilirubin 1.4 H, AST 32, ALT 56, Alkaline Phosphatase 96, Troponin I High Sens 5.8, Total Protein 7.4, Albumin 4.0, Globulin 3.4, Albumin/Globulin Ratio 1.2, Lipase 12 Lab results reviewed: Yes 06/24/25 05:50 06/24/25 05:50 Meds/Allgy Home Medications Ambulatory Orders Medication Instructions Recorded Confirmed tamsulosin 0.4 mg capsule (Flomax) 0.4 mg PO BID 04/2606/23/25 amlodipine 5 mg tablet (Norvasc) 5 mg PO DAILY 4 06/23/25 bupropion HCl 300 mg 24 hr tablet, 300 mg PO DAILY 06/23/25 extended release niacinamide 500 mg tablet 500 mg PO BID 07/16/2406/23 propranolol 20 mg tablet 20 mg PO BID 07/16/24 sertraline 100 mg tablet 50 mg PO DAILY 06/23/2505/10 Allergies Allergies Allergy/AdvReac Type Severity Reaction Status Date / Time No Known Drug Allergies Allergy Verified 06/23/25 11:17 PFSH Active Problems All Active Problems Leukocytosis (Acute) Abnormal computed tomography of bladder (Acute) Acute cholecystitis (Acute) Chest pain (Acute) Medical History Medical History Hypertension Depression Claustrophobia Raynaud disease Sarcoidosis Surgical History Surgical History History of inguinal hernia repair Hx of colonoscopy Family History Family History Other Cancer High blood pressure Social History Social History (Reviewed 06/24/25 @ 11:10 by HESHAM Funez Smoking Status: Unknown if ever smoked Do you dip or chew tobacco?: No Do you vape?: No Level: Independent Do you feel safe in your home environment?: Yes History of physical, verbal, emotional, or financial abuse?: No ETOH Use: None Substance Use: cannabis (any form) Substance Use Details: uses occansional POLST Patient has POLST: No POLST on file?: No POLST CPR Status: Attempt Resuscitation (CPR) Level of Medical Intervention: Full Treatment Anesthesia Exam (Expanded) Exam General: Alert, Oriented x3 and Cooperative Dental: WNL Mouth Openin Fingerbreadth Neck Mobility: Normal Mallampati classification: II Thyromental Distance: 4-6 cm Respiratory: Lungs clear and Normal breath sounds Cardiovascular: Regular rate Neurological: Normal speech Mental/Cognitive Status: Alert/Oriented X3 and Normal for patient Cognitive Status: Within normal limits Exam Exam Vital Signs: Vital Signs x48h Temp Pulse Resp BP Pulse Ox 06/24/25 08:11 37.2 C 60 16 137/73 H 94 06/24/25 04:10 36.8 C 60 16 115/69 93 Constitutional normal general appearance HENMT dentition normal Neck/C-Spine cervical full ROM noted Respiratory breath sounds equal bilaterally and normal respiratory effort Cardiovascular normal heart rate noted and regular rhythm noted Plan Problem List (1) Acute cholecystitis: Plan: Patient presents with abdominal pain, leukocytosis, elevated bilirubin. CT abdomen/pelvis shows distended gallbladder with thickened wall and pericholecystic edema. This was followed up by an abdominal ultrasound which shows wall thickening and pericholecystic fluid. General Surgery consultedplan for laparoscopic cholecystectomy tomorrow AM. Continue Zosyn at this time. Continue IV fluids. Clear liquid diet at this time, followed by n.p.o. at midnight. Pain control with Tylenol for mild pain, oxycodone or Toradol for moderate pain. Will supplement with IV opioids if needed for severe pain. RCRI of 1, 1.1% major cardiac event. No chest pain, shorntess of breath. Functional METS greater than 4, patient normally very active. Patient is at acceptable risk for surgery. (2) Leukocytosis: Plan: Attributed to above. Continue to trend daily. Qualifiers: Leukocytosis type: unspecified Qualified Code(s): D72.829 - Elevated white blood cell count, unspecified (3) Hypertension: Plan: Borderline blood pressures at this time. Continue propranolol to avoid rebound tachycardia. Qualifiers: Hypertension type: unspecified Qualified Code(s): I10 - Essential (primary) hypertension (4) Sarcoidosis: Plan: Patient without an active flare since his mid 30s. Currently on room air. CTA with no active cardiopulmonary process. (5) Raynaud disease: Plan: Will continue amlodipine. Qualifiers: Raynaud?s-associated gangrene presence: without gangrene Qualified Code(s): I73.00 - Raynaud's syndrome without gangrene Plan Anesthesia Type: General Consent for Procedure(s) Verified and Reviewed: Yes Code Status: Attempt Resuscitation ASA Classification ASA classification: 2-Mild systemic disease Is this case an emergency?: Yes
[2025-06-24] MEDS ORDERED: LIDOCAINE-PF 2% 10 ML AMP SUBQ ONE (11:23)
[2025-06-24] MEDS ORDERED: PROPOFOL 200 MG/20 ML VIAL IVP ONE (11:23)
[2025-06-24] MEDS ORDERED: ROCURONIUM 50 MG/5 ML VIAL ONE ×2 (11:24→12:52)
[2025-06-24] MEDS ORDERED: MIDAZOLAM 2 MG/2 ML VIAL ONE (11:48)
[2025-06-24] MEDS ORDERED: fentaNYL 100 MCG/2 ML VIAL ONE ×2 (11:48→13:39)
[2025-06-24] MEDS ORDERED: PHENYLEPHRINE HCL 0.5 MG/5 ML AMPULE ONE (14:16)
[2025-06-24] MEDS ORDERED: ACETAMINOPHEN 1,000 MG/100 ML 1,000 MG/100 ML BAG IV ONE (14:26)
[2025-06-24] MEDS ORDERED: DEXAMETHASONE 10 MG/ML VIAL ONE (14:27)
[2025-06-24] MEDS ORDERED: ONDANSETRON 4 MG/2 ML VIAL ONE (14:27)
[2025-06-24] MEDS ORDERED: SUGAMMADEX 200 MG/2 ML VIAL IVP ONE (14:33)
--- NOTE | 2025-06-24 14:56 | OPERATIVE REPORT ---
Operative Report General Admit Date: 06/24/25 Procedure Data: Operation Date: 06/24/25 10:30 Proposed Procedures p Laparoscopic Cholecystectomy POSSIBLE OPEN(Not Applicable) - Ayo Naqvi MD Actual Procedures p Laparoscopic Cholecystectomy (Not Applicable) - Ayo Naqvi MD Pre-Op Diagnosis: GANGRENOUS CHOLECYSTITIS Anesthesia Type General Case Staff Anesthesia Provider: Emeka Cyr Times Into Recovery: 06/24/25 14:43 Procedure Start: 06/24/25 12:15 Procedure End: 06/24/25 14:35 Time out: 06/24/25 12:14 Other Other Information/Narrative: PROCEDURE DATE: 06/24/2025 PREOPERATIVE DIAGNOSIS: Cody is a 69 year old male who has clinical, image, and laboratory findings consistent with acute cholecystitis. He is being taken to the operating room for laparoscopic cholecystectomy, possible open cholecystectomy. POSTOPERATIVE DIAGNOSIS: Gangrenous cholecystitis NAME OF PROCEDURE: Laparoscopic cholecystectomy; placement of subhepatic drain SURGEON: Ayo Naqvi MD, FACS [employer]IN[employer]CE SURGEON: None ANESTHESIA: General endotracheal. ESTIMATED BLOOD LOSS: 75-100 mL. DRAINS: None SPECIMEN: Gallbladder COMPLICATIONS None FINDINGS: The gallbladder was encased in a dense wrap of inflamed and fibrotic omentum. The gallbladder wall was inflamed and demonstrated a thick, inflamed visceral peritoneal rind. The posterior wall of the gallbladder was necrotic and the mid-portion of the gallbladder was intrahepatic. The gallbladder was filled with small gallstones. DESCRIPTION OF OPERATION FOLLOWS: After consent for the procedure was obtained, the patient was brought to the operating room where in the supine position, general endotracheal anesthesia was administered. A surgical time-out was performed indicating the patient and the procedure to be performed. The abdomen was prepped with alcohol-free chloroprep and draped in a sterile fashion. Pneumoperitoneum was achieved through a subumbilical incision using a Alpesh cannula and an open technique. Under direct vision, a 10 mm non-cutting laparoscopic port was placed in the sub-xiphoid region and two 5 mm noncutting ports were placed in the right upper quadrant; one in the mid-clavicular line and one in the anterior axillary line. Each of the port sites were infiltrated with 1% Lidocaine with epinephrine in a 50/50 mix with 1/4% Marcaine mixture prior making the incisions. The patient was placed in the steep reverse Trendelenburg position and rolled to the left. Inspection of the right upper quadrant revealed the above noted findings. In order to identify the gallbladder I needed to dissect the thickened, inflamed omentum away from the liver. This was difficult because the tissue was fibrotic and required the use of a ligasure to carefully transect the tissue to avoid tearing of the liver. Once the fundus was identified, the gallbladder was decompressed such that a grasper could be placed for retraction over the liver. This retraction could only be performed after the fibrotic omentum was dissected off of the lateral and medial aspect of the gallbladder wall. Even then, the anatomy was distorted in that it was difficult to identify the lateral and medial edges of the gallbladder because of the degree of inflammation. This was all complicated by frequent fogging of the endoscope and only after using a scope warmed in a endoscope warmer were we able to achieve clear enough visdeo and exposure to continue the laparoscopic approach. I was able to carefully separate the inflamed visceral peritoneum from the anterior aspect of the gallbladder wall with traction and was then able to see the actual gallbladder wall near the neck. The neck was grasped and retracted laterally. Further dissection revealed the cystic duct and the cystic artery with clear exposure of the liver behind both structures. Both cystic duct (3 clips) and cystic artery (3 clips) were clipped proximally and distally and transected. The gallbladder was then removed from the liver bed using electrocautery and brought out through the subxiphoid port using an endo-catch device. This was time consuming and tedious as the hook cautery was used slowly to avoid injury to the inflamed liver bed which was friable and bled easily. The posterior wall of the gallbladder was almost completely gangrenous and tore in several locations during retraction and bile with gallstones spilled into the peritoneal cavity. Reinspection of the right upper quadrant revealed one area of significant oozing from the liver bed which was controlled with electrocautery. Further irrigation revealed no evidence of active bleeding but I decided to apply FloSeal to the liver bed to insure post-op hemostasis. The RUQ was then irrigated with several liters of warm, sterile saline and all visible bile and stones were aspirated using the 10 mm aspirator. Reinspection of the RUQ revealed no evidence of bleeding or bile leakage from the previous dissection site. A 19 F Pal drain was placed into the sub-hepatic space, brought out through the lateral port site, and secured to the skin with a 3-0 silk suture. A search was made for sponges, packs, instruments, and needles. None were found. The sponge, pack, instrument, and needle counts were relayed to me as being correct. The sub-xiphoid port site was closed with a 0 Vicryl under direct vision using an endo-close device. The pneumoperitoneum then was released. There was no evidence of bleeding from the laparoscopic port sleeve sites upon release of the pneumoperitoneum. The subumbilical incision was closed with 0 Vicryl for the linea alba. The skin of each of the port sites was closed with interrupted 4-0 Mocryl in a subcuticular fashion with Dermabond adhesive to reinforce the epidermis. Dressings were placed. The patient tolerated the procedure well and was brought to the recovery room with stable vital signs.
[2025-06-24] MEDS ORDERED: HYDROmorphone 0.5 MG/0.5 ML SYRINGE IVP PRN (14:58)
[2025-06-24] MEDS ORDERED: ATROPINE ABBOJECT 1 MG/10 ML SYRINGE IVP PRN (14:58)
[2025-06-24] MEDS ORDERED: NALOXONE 0.4 MG/ML VIAL IVP PRN (14:58)
[2025-06-24] MEDS ORDERED: ONDANSETRON 4 MG/2 ML VIAL IVP PRN (14:58)
[2025-06-24] MEDS ORDERED: MORPHINE 2 MG/ML CARPUJECT IVP PRN (14:58)
[2025-06-24] MEDS ORDERED: fentaNYL 100 MCG/2 ML VIAL IVP PRN (14:58)
[2025-06-24] MEDS ORDERED: METOCLOPRAMIDE 10 MG/2 ML VIAL IVP PRN (14:58)
[2025-06-24] MEDS ORDERED: ePHEDrine 50 MG/ML VIAL IVP PRN (14:58)
--- NOTE | 2025-06-24 15:15 | PROVIDER PROGRESS NOTE ---
Subjective Subjective Subjective: Patient was seen in the morning prior to surgery. He had no abdominal pain overnight. He denied any fevers, chills, shortness of breath. He has had no nausea or vomiting. Diet: FLD, advance to soft in AM Code: DNR - changed by overnight Telehealth physician, no documentation noted, will discuss again with patient when more awake Dispo: Home on discharge DVT: SCDs due to recent surgery Current Medications Current Medications Current Medications: Current Medications Generic Name Dose Route Start Last Admin Trade Name Freq PRN Reason Stop Dose Admin Atropine Sulfate 0.5 mg 06/24/25 14:58 Atropine Abboject 1 Mg/10 Ml Syringe IVP 06/25/25 14:59 Q5M PRN Bradycardia Ephedrine Sulfate 10 mg 06/24/25 14:58 Ephedrine 50 Mg/Ml Vial IVP 06/25/25 14:59 Q5M PRN HYPOTENSION Fentanyl 25 - 50 mcg 06/24/25 14:58 Fentanyl 100 Mcg/2 Ml Vial IVP 06/25/25 14:59 Q5M PRN BREAKTHROUGH PAIN (2nd Choice) Hydromorphone HCl 0.2 - 0.6 mg 06/24/25 14:58 Hydromorphone 0.5 Mg/0.5 Ml Syringe IVP 06/25/25 14:59 Q5M PRN PAIN (First Choice) Piperacillin Sod/Tazobactam 100 mls @ 200 mls/hr 06/23/25 18:00 06/24/25 07:23 Sod 3.375 gm/ Sodium Chloride IV Infused Q6HR AARON Infusion Lactated Ringer's 1,000 mls @ 75 mls/hr 06/23/25 16:43 06/24/25 08:57 Lr IV 75 mls/hr .[id number] AARON Administration Lactated Ringer's 1,000 mls @ 100 mls/hr 06/24/25 15:00 Lr IV 06/25/25 00:59 .Q10H AARON Metoclopramide HCl 10 mg 06/24/25 14:58 Metoclopramide 10 Mg/2 Ml Vial IVP Q6HR PRN N/V not relieved by Zofran Morphine Sulfate 2 - 4 mg 06/24/25 14:58 Morphine 2 Mg/Ml Carpuject IVP 06/25/25 14:59 Q5M PRN PAIN (3rd Choice) Naloxone HCl 0.1 mg 06/24/25 14:58 Naloxone 0.4 Mg/Ml Vial IVP 06/25/25 14:59 Q2M PRN RESP RATE <8 Ondansetron HCl 4 mg 06/23/25 16:43 Ondansetron Odt 4 Mg Tablet TL Q6HR PRN Nausea / Vomiting Ondansetron HCl 4 mg 06/23/25 16:43 Ondansetron 4 Mg/2 Ml Vial IVP Q6HR PRN Nausea / Vomiting Ondansetron HCl 4 mg 06/24/25 14:58 Ondansetron 4 Mg/2 Ml Vial IVP 06/25/25 14:59 ONCE PRN N/V (First Choice) Sodium Chloride 10 ml 06/23/25 16:43 Sodium Chloride Flush 0.9% 10 Ml Syringe IVP PRN PRN NEEDED PER PROVIDER ORDERS Sodium Chloride 10 ml 06/23/25 17:00 06/24/25 09:30 Sodium Chloride Flush 0.9% 10 Ml Syringe IVP 10 ml 0100,[id number],1700 AARON Administration Objective Vital Signs/Intake & Output Reviewed Vital Signs: Yes Vital Signs: Vital Signs x48h Temp Pulse Pulse Resp BP BP Pulse Ox 06/24/25 15:10 97.9 F 54 L 15 92/58 L 98 06/24/25 15:00 97.9 F 54 L 13 94/61 100 06/24/25 14:55 97.9 F 54 L 13 89/55 L 99 06/24/25 14:50 97.3 F L 54 L 14 95/58 L 100 06/24/25 14:43 97.3 F L 56 L 14 119/66 99 06/24/25 08:11 99.0 F 60 16 137/73 H 94 Intake & Output: Intake & Output 06/21/25 06/22/25 06/23/25 06/24/25 23:59 23:59 23:59 23:59 Intake Total 754 / 754 2363 / 2363 Balance 754 / 754 2363 / 2363 Weight (kg) 82 kg Objective General Appearance: positive No acute distress and Alert; negative Anxious Eyes Bilateral: positive Normal inspection, PERRL and EOMI ENT: positive ENT inspection nml, Pharynx nml and No signs of dehydration Neck: positive Nml inspection, Thyroid nml and No JVD Respiratory: positive Chest non-tender, No respiratory distress and Breath sounds nml; negative Wheezes, Rales or Rhonchi Cardiovascular: positive Regular rate & rhythm, No murmur and No gallop; negative Tachycardia or Systolic murmur Abdomen: positive No organomegaly and No distention; negative Non-tender (mildly tender to palpation in epigastric region), Guarding or Splenomegaly Back: positive Nml inspection; negative CVA tenderness (R) or CVA tenderness (L) Skin: positive Color nml, No rash, Warm and Dry Extremities: positive Non-tender, Full ROM, Nml appearance and No pedal edema Neurologic/Psychiatric: positive Oriented x3, Motor nml and Mood/affect nml Lab Results 06/24/25 05:50 06/24/25 05:50 Other Labs: Lab Results x24hrs 06/24/25 06/24/25 06/24/25 Range/Units 05:50 05:50 05:50 WBC (4.8-10.8) x10^3/uL RBC (4.70-6.10) 10^6/uL Hgb (14.0-18.0) g/dL Hct (42.0-52.0) % MCV (80.0-94.0) fL MCH (27.0-31.0) pg MCHC (32.0-36.0) g/dL RDW (12.0-15.0) % Plt Count (130-450) 10^3/uL MPV (7.4-11.4) fL Sodium (135-145) mmol/L Potassium (3.5-4.5) mmol/L Chloride (101-111) mmol/L Carbon Dioxide (21-32) mmol/L Anion Gap (6-13) BUN (6-20) mg/dL Creatinine (0.6-1.3) mg/dL Estimated GFR (MDRD) 111 (>89) Glucose 122 H 121 H (74-104) mg/dL Calcium 8.5 8.4 L (8.5-10.3) mg/dL Magnesium 2.0 (1.7-2.3) mg/dL Total Bilirubin 1.2 H (0.2-1.0) mg/dL AST 39 (10-42) IU/L ALT 51 (10-60) IU/L Alkaline Phosphatase 105 (42-121) IU/L Total Protein 6.0 L (6.4-8.9) g/dL Albumin 3.3 (3.2-5.5) g/dL Globulin 2.7 (2.1-4.2) g/dL Albumin/Globulin Ratio 1.2 (1.0-2.2) 06/24/25 06/24/25 06/24/25 Range/Units 05:50 05:50 05:50 WBC (4.8-10.8) x10^3/uL RBC (4.70-6.10) 10^6/uL Hgb (14.0-18.0) g/dL Hct (42.0-52.0) % MCV (80.0-94.0) fL MCH (27.0-31.0) pg MCHC (32.0-36.0) g/dL RDW (12.0-15.0) % Plt Count (130-450) 10^3/uL MPV (7.4-11.4) fL Sodium (135-145) mmol/L Potassium (3.5-4.5) mmol/L Chloride (101-111) mmol/L Carbon Dioxide (21-32) mmol/L Anion Gap 7.0 (6-13) BUN 13 13 (6-20) mg/dL Creatinine 0.7 0.7 (0.6-1.3) mg/dL Estimated GFR (MDRD) 111 (>89) Glucose (74-104) mg/dL Calcium (8.5-10.3) mg/dL Magnesium (1.7-2.3) mg/dL Total Bilirubin (0.2-1.0) mg/dL AST (10-42) IU/L ALT (10-60) IU/L Alkaline Phosphatase (42-121) IU/L Total Protein (6.4-8.9) g/dL Albumin (3.2-5.5) g/dL Globulin (2.1-4.2) g/dL Albumin/Globulin Ratio (1.0-2.2) 06/24/25 06/24/25 06/24/25 Range/Units 05:50 05:50 05:50 WBC (4.8-10.8) x10^3/uL RBC (4.70-6.10) 10^6/uL Hgb (14.0-18.0) g/dL Hct (42.0-52.0) % MCV (80.0-94.0) fL MCH (27.0-31.0) pg MCHC (32.0-36.0) g/dL RDW (12.0-15.0) % Plt Count (130-450) 10^3/uL MPV (7.4-11.4) fL Sodium (135-145) mmol/L Potassium 3.4 L (3.5-4.5) mmol/L Chloride 100 L 100 L (101-111) mmol/L Carbon Dioxide 26 27 (21-32) mmol/L Anion Gap 6.0 (6-13) BUN (6-20) mg/dL Creatinine (0.6-1.3) mg/dL Estimated GFR (MDRD) (>89) Glucose (74-104) mg/dL Calcium (8.5-10.3) mg/dL Magnesium (1.7-2.3) mg/dL Total Bilirubin (0.2-1.0) mg/dL AST (10-42) IU/L ALT (10-60) IU/L Alkaline Phosphatase (42-121) IU/L Total Protein (6.4-8.9) g/dL Albumin (3.2-5.5) g/dL Globulin (2.1-4.2) g/dL Albumin/Globulin Ratio (1.0-2.2) 06/24/25 06/24/25 Range/Units 05:50 05:50 WBC 16.8 H (4.8-10.8) x10^3/uL RBC 4.58 L (4.70-6.10) 10^6/uL Hgb 14.2 (14.0-18.0) g/dL Hct 39.2 L (42.0-52.0) % MCV 85.6 (80.0-94.0) fL MCH 31.0 (27.0-31.0) pg MCHC 36.2 H (32.0-36.0) g/dL RDW 12.6 (12.0-15.0) % Plt Count 129 L (130-450) 10^3/uL MPV 10.7 (7.4-11.4) fL Sodium 133 L 133 L (135-145) mmol/L Potassium 3.3 L (3.5-4.5) mmol/L Chloride (101-111) mmol/L Carbon Dioxide (21-32) mmol/L Anion Gap (6-13) BUN (6-20) mg/dL Creatinine (0.6-1.3) mg/dL Estimated GFR (MDRD) (>89) Glucose (74-104) mg/dL Calcium (8.5-10.3) mg/dL Magnesium (1.7-2.3) mg/dL Total Bilirubin (0.2-1.0) mg/dL AST (10-42) IU/L ALT (10-60) IU/L Alkaline Phosphatase (42-121) IU/L Total Protein (6.4-8.9) g/dL Albumin (3.2-5.5) g/dL Globulin (2.1-4.2) g/dL Albumin/Globulin Ratio (1.0-2.2) Assessment/Plan Problem List (1) Acute cholecystitis: Impression: Patient presents with abdominal pain, leukocytosis, elevated bilirubin. CT abdomen/pelvis shows distended gallbladder with thickened wall and pericholecystic edema. This was followed up by an abdominal ultrasound which shows wall thickening and pericholecystic fluid. General Surgery consulted laparoscopic cholecystectomy completed today. Hepatic drain placed. Continue Zosyn at this time. Continue IV fluids. Clear liquid diet at this time. General surgery following. Pain control with Tylenol for mild pain, oxycodone or Toradol for moderate pain, IV Dilaudid for severe pain. (2) Leukocytosis: Impression: Attributed to above. Continue to trend daily. Qualifiers: Leukocytosis type: unspecified Qualified Code(s): D72.829 - Elevated white blood cell count, unspecified (3) Hypertension: Impression: Borderline blood pressures at this time. Continue propranolol to avoid rebound tachycardia. Qualifiers: Hypertension type: unspecified Qualified Code(s): I10 - Essential (primary) hypertension (4) Sarcoidosis: Impression: Patient without an active flare since his mid 30s. Currently on room air. CTA with no active cardiopulmonary process. (5) Raynaud disease: Impression: Amlodipine held due to borderline blood pressures. Qualifiers: Raynaud?s-associated gangrene presence: without gangrene Qualified Code(s): I73.00 - Raynaud's syndrome without gangrene
--- NOTE | 2025-06-24 15:18 | ANESTHESIA POST OP EVALUATION ---
Anesthesia Post Eval Post Anesthesia Eval Vitals: Last Vital Signs Temp 36.6 C 06/24/25 15:10 Pulse 54 L 06/24/25 15:10 Resp 15 06/24/25 15:10 BP 92/58 L 06/24/25 15:10 Pulse Ox 98 06/24/25 15:10 CV Function Including HR & BP: Stable Pain Control: Satisfactory Nausea & Vomiting: Negative Mental Status: Baseline Respiratory Status: Airway Patent Hydration Status: Satisfactory Anesthesia Complications: None
[2025-06-24] MEDS ORDERED: oxyCODONE 5 MG TABLET PO PRN (15:22)
[2025-06-24] MEDS ORDERED: SODIUM CHLORIDE FLUSH 0.9% 10 ML SYRINGE IVP PRN (15:22)
[2025-06-24] MEDS: LACTATED RINGERS 1,000 ML IV SCH (16:26)
[2025-06-24] MEDS: LACTATED RINGERS 500 ML IV ONE (17:00)
[2025-06-24] MEDS ORDERED: SODIUM CHLORIDE FLUSH 0.9% 10 ML SYRINGE IVP SCH (17:00)
[2025-06-24] MEDS: HYDROmorphone 0.5 MG/0.5 ML SYRINGE IVP PRN (19:11)
[2025-06-24] MEDS: SERTRALINE 50 MG TABLET PO STA (21:31)
[2025-06-24] MEDS: PROPRANOLOL 10 MG TABLET PO SCH (21:35)
[2025-06-25] MEDS: IBUPROFEN 600 MG TABLET PO PRN (01:20)
[2025-06-25 05:15] LABS: HCT - HEMATOCRIT 34.1 % (42.0-52.0); HGB - HEMOGLOBIN 11.9 g/dL (14.0-18.0); MEAN PLATELET VOLUME 11.0 fL (7.4-11.4); NRBC ABSOLUTE COUNT (AUTO) 0.00 x10^3/uL; NUCLEATED RED BLOOD CELLS AUTO 0.0 /100WBC; PLT - PLATELET COUNT 135 10^3/uL (130-450); RED CELL DISTRIBUTION WIDTH 12.9 % (12.0-15.0)
[2025-06-25 05:35] LABS: ALT ALANINE AMINOTRANSFERASE 73.0 IU/L (10-60); AST ASPARTATE AMINOTRANSFERASE 59.0 IU/L (10-42); BUN - BLOOD UREA NITROGEN 12.0 mg/dL (6-20); CARBON DIOXIDE - CO2 26.0 mmol/L (21-32); CREATININE 0.7 mg/dL (0.6-1.3); GFR - MDRD 111.0 (>89)
[2025-06-25] MEDS: ACETAMINOPHEN 325 MG TABLET PO PRN (05:58)
[2025-06-25] MEDS: TAMSULOSIN 0.4 MG CAPSULE PO SCH (08:13)
[2025-06-25 10:02] VITALS: BP 119/69; TEMP 98.1; O2SAT 92
--- NOTE | 2025-06-25 10:30 | PROVIDER PROGRESS NOTE ---
Subjective General Admit Date: 06/24/25 Procedure Date: 06/24/25 Post Op Days: 1 Procedure Performed: lap ana Other Other Information/Narrative: Patient denies pain/soreness this AM. He is hungry and would like to go home. No questions or concerns. Exam Exam Vital Signs: Vital Signs x48h Temp Pulse Resp BP Pulse Ox 06/25/25 09:45 98.1 F 58 L 18 119/69 92 06/25/25 07:43 98.2 F 80 18 134/74 H 93 Gen: NAD, alert and oriented CV:RRR Pulm: non labored, on RA Abd: soft, minimal incisional ttp, no r/g. SOLO with serosang output (not bilious) 510mL output recorded since surgery. Decreasing amount quickly. Ext: no c/c/e Impression/Plan Problem List (1) Acute cholecystitis: (2) Leukocytosis: Qualifiers: Leukocytosis type: unspecified Qualified Code(s): D72.829 - Elevated white blood cell count, unspecified (3) Hypertension: Qualifiers: Hypertension type: unspecified Qualified Code(s): I10 - Essential (primary) hypertension (4) Sarcoidosis: (5) Raynaud disease: Qualifiers: Raynaud?s-associated gangrene presence: without gangrene Qualified Code(s): I73.00 - Raynaud's syndrome without gangrene Plan 69 y/o M Admitted with acute cholecystitis, found to have gangrenous cholecystit is at the time of cholecystectomy which was markedly more difficult than the average procedure. Now postop day #1. The patient has minimal pain He is tolerating a diet His SOLO drain output is decreasing and is nonbilious He is able to ambulate without difficulty and has been voiding since his time of surgery. Drain teaching, plan for discharge to home today, follow-up with general surgery clinic when drain output is 30 mL or less per day. Follow-up with me in 1 to 2 weeks.
[2025-06-26] MEDS ORDERED: ENOXAPARIN 40 MG/0.4 ML SYRINGE SUBQ SCH (09:00)
== END 2025-06-25 09:58 | disposition home or self-care (01) ==
LOC: ED 10:53 → MS2 10:53 → UNDODISIN 06-25 09:58
PROVIDERS: ADMIT Internal Medicine; ATTEND Internal Medicine
DX: K82.A1 Gangrene of gallbladder in cholecystitis; N40.0 Benign prostatic hyperplasia without lower urinary tract symptoms; I73.00 Raynaud's syndrome without gangrene; K40.90 Unilateral inguinal hernia, without obstruction or gangrene, not specified as recurrent; K80.00 Calculus of gallbladder with acute cholecystitis without obstruction; D86.9 Sarcoidosis, unspecified; Z79.899 Other long term (current) drug therapy; F32.A Depression, unspecified; N28.9 Disorder of kidney and ureter, unspecified; I10 Essential (primary) hypertension; K21.9 Gastro-esophageal reflux disease without esophagitis; E87.1 Hypo-osmolality and hyponatremia; N32.3 Diverticulum of bladder; R73.9 Hyperglycemia, unspecified; E78.5 Hyperlipidemia, unspecified; G47.33 Obstructive sleep apnea (adult) (pediatric)